=== PATIENT | female | born 1960 | race American Indian/Alaskan Native ===

== ENCOUNTER 2020-08-28 00:29 | Observation (INO) | payer OTHER, SELFPAY ==
--- NOTE | 2020-08-28 00:55 | Event Note ---
ED Screening Note Date of service: 08/28/20 Time: 00:55 ED Screening Note: c/o CP x today no SOB denies abnormal heart hx This initial assessment/diagnostic orders/clinical plan/treatment(s) is/are subject to change based on patients health status, clinical progression and re- assessment by fellow clinical providers in the ED. Further treatment and workup at subsequent clinical providers discretion. Patient/guardian urged not to elope from the ED as their condition may be serious if not clinically assessed and managed. Initial orders include: ekg CXR labs
--- NOTE | 2020-08-28 01:19 | XRay Report ---
CHEST 2 VIEWS INDICATION: chest pain. COMPARISON: None. FINDINGS: Support devices: None. Heart: Within normal limits. Lungs/Pleura: No acute air space or interstitial disease. No significant pleural effusion. IMPRESSION: No acute findings. Signer Name: Azael Jain MD Signed: 08/28/2020 1:15 AM Workstation Name: [id number]
[2020-08-28 01:59] LABS: Basophils % (Auto) 0.9 % (0.0-1.8); Eosinophils # (Auto) 0.2 K/mm3 (0.0-0.4); Eosinophils % (Auto) 3.6 % (0.0-4.3); Hematocrit 38.7 % (30.3-42.9); Hemoglobin 12.6 gm/dl (10.1-14.3); Lymphocytes # (Auto) 1.5 K/mm3 (1.2-5.4); Lymphocytes % (Auto) 26.5 % (13.4-35.0); Mean Corpuscular HGB Conc 33 % (30-34); Mean Corpuscular Volume 84 fl (79-97); Monocytes # (Auto) 0.4 K/mm3 (0.0-0.8); Monocytes % (Auto) 7.2 % (0.0-7.3); Platelet Count 232 K/mm3 (140-440); Red Blood Count 4.63 M/mm3 (3.65-5.03); Red Cell Distribution Width 13.9 % (13.2-15.2)
[2020-08-28 02:03] LABS: Alanine Aminotransferase 9 units/L (7-56); Albumin 4.5 g/dL (3.9-5); BUN/Creatinine Ratio 18; Blood Urea Nitrogen 14 mg/dL (7-17); Calcium 9.5 mg/dL (8.4-10.2); Hemolysis Index 2
[2020-08-28] MEDS ORDERED: ASPIRIN 325 MG TAB PO ONE (03:11)
[2020-08-28] MEDS ORDERED: cloNIDine 0.1 MG TAB PO ONE (03:11)
[2020-08-28] MEDS ORDERED: ONDANSETRON 4 MG/2 ML INJ IV ONE (03:11)
[2020-08-28] MEDS ORDERED: fentaNYL 100 MCG/2 ML INJ IV ONE (03:11)
[2020-08-28] MEDS ORDERED: NITROGLYCERIN 2% OINT 1 GM TP ONE (03:11)
--- NOTE | 2020-08-28 03:17 | Emergency Department Report ---
HPI - General Chief Complaint: Chest Pain Time Seen by Provider: 08/28/20 00:54 - HPI HPI: Room 21 The patient is a 59-year-old female present with a chief complaint of chest pain. Patient states 3 days ago she had an episode of intermittent chest pres sure but then it resolved. Patient states that the substernal chest pressure returned today and has been intermittent in nature. Patient denies nausea/vomiting, shortness of breath or diaphoresis. Patient denies history of fever. Patient currently gives her chest pressure score of 5/10. Patient states she is never had a stress test or cardiac catheterization ED Past Medical Hx - Past Medical History Additional medical history: fibroids - Surgical History Additional Surgical History: x3 - Family History Family history: no significant - Social History Smoking Status: Never Smoker Substance Use Type: None (Denies illicit drug use) ED Review of Systems ROS: Stated complaint: CHEST PAIN Other details as noted in HPI Constitutional: denies: diaphoresis Eyes: denies: eye pain ENT: denies: throat pain Respiratory: denies: shortness of breath Cardiovascular: chest pain Endocrine: no symptoms reported Gastrointestinal: denies: nausea, vomiting Genitourinary: denies: dysuria Musculoskeletal: back pain Neurological: denies: headache Physical Exam - Physical Exam Vital Signs: Vital Signs 08/28/20 00:51 Temperature 98.3 F Pulse Rate 100 H Respiratory 18 Rate Blood Pressure 185/112 O2 Sat by Pulse 98 Oximetry Physical Exam: GENERAL: The patient is well-developed well-nourished female lying on stretcher not appearing to be in acute distress. [] HEENT: Normocephalic. Atraumatic. Extraocular motions are intact. Patient has moist mucous membranes. NECK: Supple. Trachea midline CHEST/LUNGS: Clear to auscultation. There is no respiratory distress noted. HEART/CARDIOVASCULAR: Regular. There is no tachycardia. There is no gallop rub or murmur. 2+ radial pulses bilaterally ABDOMEN: Abdomen is soft, nontender. Patient has normal bowel sounds. There is no abdominal distention. SKIN: There is no rash. There is no edema. There is no diaphoresis. NEURO: The patient is awake, alert, and oriented. The patient is cooperative. The patient has no focal neurologic deficits. The patient has normal speech MUSCULOSKELETAL: There is no evidence of acute injury. ED Course Vital Signs 08/28/20 00:51 Temperature 98.3 F Pulse Rate 100 H Respiratory 18 Rate Blood Pressure 185/112 O2 Sat by Pulse 98 Oximetry ED Medical Decision Making - Lab Data Result diagrams: 08/28/20 00:56 08/28/20 00:56 - EKG Data -: EKG Interpreted by Me EKG shows normal: sinus rhythm Rate: normal - EKG Data When compared to previous EKG there are: previous EKG unavailable Interpretation: other (ST depressions inferolaterally) - Radiology Data Radiology results: report reviewed (Chest x-ray), image reviewed (Chest x-ray) interpreted by me: Chest x-ray-no focal infiltrates, no pneumothorax. No foreign body seen [facility] [address] [place] [address] XRay Report Signed Patient: WENDY WEST MR#: [id number] 22 : 1960 Acct:[id number] Age/Sex: 59 / F ADM Date: 08/28/20 Loc: ED Attending Dr: Ordering Physician: ZAHRA VALENZUELA Date of Service: 08/28/20 Procedure(s): XR chest routine 2V Accession Number(s): [id number] cc: ZAHRA VALENZUELA Fluoro Time In Minutes: CHEST 2 VIEWS INDICATION: chest pain. COMPARISON: None. FINDINGS: Support devices: None. Heart: Within normal limits. Lungs/Pleura: No acute air space or interstitial disease. No significant pleural effusion. IMPRESSION: No acute findings. Signer Name: Azael Jain MD Signed: 08/28/2020 1:15 AM Workstation Name: [id number] Transcribed By: ES Dictated By: Azael Jain MD Electronically Authenticated By: Azael Jain MD Signed Date/Time: 08/28/20114 DD/ 3 TD/TT: Print Cancel - Differential Diagnosis ACS, pericarditis, hypertensive urgency Critical care attestation.: If time is entered above; I have spent that time in minutes in the direct care of this critically ill patient, excluding procedure time. ED Disposition Clinical Impression: Chest pain, Uncontrolled hypertension, ST segment depression Disposition: OP ADMIT IP TO THIS HOSP Is pt being admited?: Yes Does the pt Need Aspirin: Yes Condition: Fair Instructions: Nonspecific Chest Pain, Adult, Hypertension (ED) Referrals: PRIMARY CARE,MD [Primary Care Provider] - 3-5 Days Time of Disposition: 03:18 (Hospitalist paged (Dr Baltazar)) Heart Score - HEART Score History: Moderately suspicious EKG: Significant ST-depression Age: 45-65 Risk factors: 1-2 risk factors Troponin: < normal limit HEART Score: 5 - EKG Read Time Time EKG Completed: 00:41 EKG Read Time: 00:46
[2020-08-28] MEDS ORDERED: MAGNESIUM HYDROXIDE (MOM) ORAL LIQD UDC PO PRN (03:57)
[2020-08-28] MEDS ORDERED: traMADol 50 MG TAB PO PRN (03:57)
[2020-08-28] MEDS ORDERED: ONDANSETRON 4 MG/2 ML INJ IV PRN (03:57)
[2020-08-28] MEDS ORDERED: ACETAMINOPHEN 325 MG TAB PO PRN (03:57)
[2020-08-28] MEDS ORDERED: MORPHINE 4 MG/1 ML INJ IV PRN (03:57)
[2020-08-28] MEDS ORDERED: NITROGLYCERIN 0.4 MG TAB SUBL SL PRN (03:57)
--- NOTE | 2020-08-28 04:19 | History and Physical Report ---
History of Present Illness Date of examination: 08/28/20 Date of admission: 08/28/2020 Chief complaint: Chest Pain History of present illness: 59-year-old -[place] female with no significant past medical history presenting today in the emergency room with 3-day history of chest pain. Chest pain has been intermittent over the past 3 days. It is substernal and radiating towards the back. Chest pain felt like pressure, no no relieving or exacerbating factor. She denies any fever or chills, no headache or dizziness, no nausea or vomiting, no shortness of breath and no diaphoresis. Patient denies any recent travel and no sick contacts. Denies any contact with anyone with COVID-19. Upon arrival in the emergency room blood pressure was quite elevated with systolic in the 180s and diastolic in the low 100s. Work-up in the emergency room reveals normal sinus rhythm on EKG with ST depressions in the inferolateral leads. Patient is being admitted for chest pain evaluation and uncontrolled hypertension. Past History Past Surgical History: , Other (Fibroids) Family history: hypertension (In father), other (Heart disease in Father.) Medications and Allergies Allergies Allergy/AdvReac Type Severity Reaction Status Date / Time No Known Allergies Allergy Verified 08/28/20 04:11 Active Meds: Active Medications Acetaminophen (Acetaminophen 325 Mg Tab) 650 mg PO Q4H PRN PRN Reason: Pain MILD(1-3)/Fever >100.5/PINEDA Aspirin (Aspirin Ec 325 Mg Tab) 325 mg PO QDAY [facility] Heparin Sodium (Porcine) (Heparin 5,000 Unit/1 Ml Vial) 5,000 unit SUB-Q Q8HR [facility] Magnesium Hydroxide (Magnesium Hydroxide (Mom) Oral Liqd Udc) 30 ml PO Q4H PRN PRN Reason: Constipation Morphine Sulfate (Morphine 4 Mg/1 Ml Inj) 2 mg IV Q5MIN PRN PRN Reason: Chest Pain Nitroglycerin (Nitroglycerin 0.4 Mg Tab Subl) 0.4 mg SL Q5M PRN PRN Reason: Chest Pain Ondansetron HCl (Ondansetron 4 Mg/2 Ml Inj) 4 mg IV Q8H PRN PRN Reason: Nausea And Vomiting Sodium Chloride (Sodium Chloride 0.9% 10 Ml Flush Syringe) 10 ml IV BID OCY Sodium Chloride (Sodium Chloride 0.9% 10 Ml Flush Syringe) 10 ml IV PRN PRN PRN Reason: LINE FLUSH Tramadol HCl (Tramadol 50 Mg Tab) 50 mg PO Q6H PRN PRN Reason: Pain, Moderate (4-6) Review of Systems Constitutional: no fever, no chills Ears, nose, mouth and throat: no nasal congestion, no sore throat Cardiovascular: chest pain, no palpitations Respiratory: no cough, no shortness of breath Gastrointestinal: no nausea, no vomiting, no diarrhea Genitourinary Female: no pelvic pain, no flank pain, no dysuria, no hematuria Musculoskeletal: no neck pain, no low back pain Integumentary: no rash, no pruritis Neurological: no headaches, no confusion Psychiatric: no anxiety, no depression Endocrine: no polyphagia, no polydipsia, no polyuria, no nocturia Exam - Constitutional Vitals: Temp Pulse Resp BP Pulse Ox 98.3 F 100 H 18 185/112 98 08/28/20 00:51 08/28/20 00:51 08/28/20 00:51 08/28/20 00:51 08/28/20 00:51 General appearance: Present: no acute distress, well-nourished - EENT Eyes: Present: PERRL, EOM intact. Absent: scleral icterus ENT: hearing intact, clear oral mucosa, dentition normal - Neck Neck: Present: supple, normal ROM - Respiratory Respiratory effort: normal Respiratory: bilateral: CTA - Cardiovascular Rhythm: regular Heart Sounds: Present: S1 & S2. Absent: gallop, systolic murmur, diastolic murmur, rub, click - Extremities Extremities: no ischemia, pulses intact, pulses symmetrical, No edema, normal temperature, normal color, Full ROM Peripheral Pulses: within normal limits - Abdominal General gastrointestinal: Present: soft, non-tender, non-distended, normal bowel sounds. Absent: mass - Integumentary Integumentary: Present: clear, warm, dry, normal turgor. Absent: rash - Musculoskeletal Musculoskeletal: strength equal bilaterally - Psychiatric Psychiatric: appropriate mood/affect, intact judgment & insight, memory intact, cooperative - Neurologic Neurologic: CNII-XII intact, no focal deficits, moves all extremities HEART Score - HEART Score History: Moderately suspicious EKG: Significant ST-depression Age: 45-65 Risk factors: 1-2 risk factors Troponin: Troponin T < 0.010 ng/mL (0.00-0.029) 08/28/20 00:56 Troponin: < normal limit HEART Score: 5 Results - Labs CBC & Chem 7: 08/28/20 00:56 08/28/20 00:56 Labs: Abnormal lab results 08/28/20 Range/Units 00:56 MCH 27 L (28-32) pg Assessment and Plan - Patient Problems (1) Chest pain Current Visit: Yes Status: Acute Plan to address problem: Patient admitted and placed on telemetry. We will check serial cardiac enzymes. Will monitor EKG. Patient had ST depressions in the inferior laterally. Patient will be placed on aspirin, sublingual nitroglycerin and IV morphine as needed for chest pain. We will schedule patient for stress test and echocardiogram. Consult will be placed to cardiology for evaluation. (2) Uncontrolled hypertension Current Visit: Yes Status: Acute Plan to address problem: Patient has undiagnosed hypertension. She has had some clonidine in the emergency room. Will monitor vital signs c losely. Will consider placing on routine home medications prior to discharge. (3) DVT prophylaxis Current Visit: Yes Status: Acute Plan to address problem: Patient placed on subcutaneous heparin. (4) Full code status Current Visit: Yes Status: Acute Plan to address problem: Full Code
[2020-08-28] MEDS ORDERED: hydrALAZINE 20 MG/1 ML INJ IV PRN (04:47)
[2020-08-28 05:01] LABS: Basophils % (Auto) 0.7 % (0.0-1.8); Eosinophils # (Auto) 0.1 K/mm3 (0.0-0.4); Eosinophils % (Auto) 1.8 % (0.0-4.3); Hematocrit 38.8 % (30.3-42.9); Hemoglobin 12.6 gm/dl (10.1-14.3); Lymphocytes # (Auto) 1.5 K/mm3 (1.2-5.4); Lymphocytes % (Auto) 22.5 % (13.4-35.0); Mean Corpuscular HGB Conc 33 % (30-34); Mean Corpuscular Volume 84 fl (79-97); Monocytes # (Auto) 0.4 K/mm3 (0.0-0.8); Monocytes % (Auto) 6.5 % (0.0-7.3); Platelet Count 207 K/mm3 (140-440); Red Blood Count 4.64 M/mm3 (3.65-5.03); Red Cell Distribution Width 14.1 % (13.2-15.2)
[2020-08-28 05:10] LABS: Blood Urea Nitrogen 15 mg/dL (7-17); Calcium 9.1 mg/dL (8.4-10.2); Chol/HDL Ratio 3.17 %; HDL Cholesterol 63 mg/dL (40-59); Hemolysis Index 3; LDL Cholesterol,Direct 131 mg/dL (50-130)
[2020-08-28 05:18] LABS: BUN/Creatinine Ratio 21
[2020-08-28] MEDS: HEPARIN 5,000 UNIT/1 ML VIAL SUB-Q SCH ×4 (06:27→21:43)
[2020-08-28] MEDS ORDERED: REGADENOSON 0.4 MG/5 ML INJ IV ONE (08:33)
[2020-08-28] MEDS: ACETAMINOPHEN 325 MG TAB PO PRN (12:45)
--- NOTE | 2020-08-28 14:22 | Event Note ---
Date: 08/28/20 Patient seen and examined, 59-year-old female who comes in for chest pain rule out. Echocardiogram and stress test have been completed. Patient's blood pressure was elevated with systolics in the 180s, Resolved after clonidine. Patient states that she does not take any blood pressure medications. Patient has very minimal chest pain at this time. We will continue to monitor, await recommendations from cardiology and make sure blood pressure is controlled.
--- NOTE | 2020-08-28 16:57 | Consultation ---
History of Present Illness Consult date: 08/28/20 Requesting physician: HOLLY GLOVER Consult reason: chest pain History of present illness: This patient is a 59-year-old female with no significant past medical history. Patient is previously unknown to our practice. Patient presents to [facility] ER with chief complaint of chest pain and hypertension x3 days. Chest pain is described as substernal and radiating towards the back, feels like pressure, not worse with inspiration, no palliative or provoking factors. Initial blood pressure is noted to be 180/100. Review of initial twelve-lead by ER staff is diagnosed as normal sinus rhythm with ST depression in inferior lateral leads. Patient denies any weakness, syncope, shortness of breath, fever, chills, headache, dizziness, N/V/D, recent illness or known exposures. At time of interview by cardiology patient is currently chest pain- free and feels much better patient states she is ready to go home. Past History Past Medical History: other (Per HPI) Past Surgical History: , Other (Fibroids) Family history: hypertension (In father), other (Heart disease in Father.) Medications and Allergies Allergies Allergy/AdvReac Type Severity Reaction Status Date / Time No Known Allergies Allergy Verified 08/28/20 04:11 Home Medications Medication Instructions Recorded Confirmed Last Taken Type No Known Home Medications [No 08/28/20 08/28/20 Unknown History Reported Home Medications] Active Meds: Active Medications Acetaminophen (Acetaminophen 325 Mg Tab) 650 mg PO Q4H PRN PRN Reason: Pain MILD(1-3)/Fever >100.5/PINEDA Last Admin: 08/28/20 12:45 Dose: 650 mg Documented by: Aspirin (Aspirin Ec 325 Mg Tab) 325 mg PO QDAY [facility] Heparin Sodium (Porcine) (Heparin 5,000 Unit/1 Ml Vial) 5,000 unit SUB-Q Q8HR [facility] Last Admin: 08/28/20 15:10 Dose: 5,000 unit Documented by: Hydralazine HCl (Hydralazine 20 Mg/1 Ml Inj) 10 mg IV Q4HR PRN PRN Reason: Blood Pressure Magnesium Hydroxide (Magnesium Hydroxide (Mom) Oral Liqd Udc) 30 ml PO Q4H PRN PRN Reason: Constipation Morphine Sulfate (Morphine 4 Mg/1 Ml Inj) 2 mg IV Q5MIN PRN PRN Reason: Chest Pain Nitroglycerin (Nitroglycerin 0.4 Mg Tab Subl) 0.4 mg SL Q5M PRN PRN Reason: Chest Pain Last Admin: 08/28/20 12:44 Dose: 0.4 mg Documented by: Ondansetron HCl (Ondansetron 4 Mg/2 Ml Inj) 4 mg IV Q8H PRN PRN Reason: Nausea And Vomiting Sodium Chloride (Sodium Chloride 0.9% 10 Ml Flush Syringe) 10 ml IV BID COY Last Admin: 08/28/20 12:45 Dose: 10 ml Documented by: Sodium Chloride (Sodium Chloride 0.9% 10 Ml Flush Syringe) 10 ml IV PRN PRN PRN Reason: LINE FLUSH Tramadol HCl (Tramadol 50 Mg Tab) 50 mg PO Q6H PRN PRN Reason: Pain, Moderate (4-6) Review of Systems Constitutional: no weight gain, no fever, no chills, no sweats Ears, nose, mouth and throat: no ear pain, no ear discharge, no nose pain, no nasal congestion, no nasal discharge Cardiovascular: chest pain, high blood pressure, no orthopnea, no palpitations, no rapid/irregular heart beat, no edema, no syncope Respiratory: no cough, no hemoptysis, no shortness of breath, no dyspnea on exertion Gastrointestinal: no abdominal pain, no nausea, no vomiting, no diarrhea Genitourinary Female: no flank pain Musculoskeletal: no neck stiffness, no neck pain, no shooting arm pain, no arm numbness/tingling, no low back pain, no shooting leg pain Integumentary: no rash, no pruritis, no redness, no sores, no wounds Neurological: no head injury, no paralysis, no weakness, no parathesias, no numbness, no tingling Psychiatric: no anxiety Endocrine: no cold intolerance, no heat intolerance Hematologic/Lymphatic: no easy bruising, no easy bleeding Allergic/Immunologic: no urticaria Physical Examination Last Vital Signs Temp 98.6 F 08/28/20 11:24 Pulse 78 08/28/20 11:24 Resp 18 08/28/20 11:24 BP 136/79 08/28/20 11:24 Pulse Ox 96 08/28/20 11:24 Results 08/28/20 04:16 08/28/20 04:16 Cardiac Enzymes 08/28/20 Range/Units 00:56 AST 17 (5-40) units/L Lipids 08/28/20 Range/Units 04:16 Triglycerides 74 (2-149) mg/dL Cholesterol 200 H (50-199) mg/dL HDL Cholesterol 63 H (40-59) mg/dL Cholesterol/HDL Ratio 3.17 % CBC 08/28/20 08/28/20 Range/Units 00:56 04:16 WBC 5.7 6.6 (4.5-11.0) K/mm3 RBC 4.63 4.64 (3.65-5.03) M/mm3 Hgb 12.6 12.6 (10.1-14.3) gm/dl Hct 38.7 38.8 (30.3-42.9) % Plt Count 232 207 (140-440) K/mm3 Lymph # (Auto) 1.5 1.5 (1.2-5.4) K/mm3 Crisp # (Auto) 0.4 0.4 (0.0-0.8) K/mm3 Eos # (Auto) 0.2 0.1 (0.0-0.4) K/mm3 Baso # (Auto) 0.0 0.0 (0.0-0.1) K/mm3 Comprehensive Metabolic Panel 08/28/20 08/28/20 Range/Units 00:56 04:16 Sodium 141 140 (137-145) mmol/L Potassium 3.9 4.1 (3.6-5.0) mmol/L Chloride 103.8 103.8 (98-107) mmol/L Carbon Dioxide 27 25 (22-30) mmol/L BUN 14 15 (7-17) mg/dL Creatinine 0.8 0.7 (0.6-1.2) mg/dL Glucose 94 92 (65-100) mg/dL Calcium 9.5 9.1 (8.4-10.2) mg/dL AST 17 (5-40) units/L ALT 9 (7-56) units/L Alkaline Phosphatase 97 (35-129) units/L Total Protein 7.1 (6.3-8.2) g/dL Albumin 4.5 (3.9-5) g/dL - Imaging and Cardiology Echo: report reviewed Assessment and Plan Telemetry reviewed: Sinus rhythm 62. No events. * Chest pain * Patient is currently chest pain-free. * Troponins are negative x2. AMI has been ruled out. * Lexiscan MPI stress test is negative for reversible ischemia. * Echocardiogram is pending read. * Hypertensive urgency * Patient is currently normotensive after receiving clonidine. No current antihypertensive regimen. * DVT prophylaxis * Aspirin 325 mg, heparin SQ Patient is currently normotensive and chest pain-free. Further Roberto pending echocardiogram results. Will follow Patient was seen in conjunction with Dr Ehsan Jurado who agrees with this assessment plan of care (1) Chest pain Current Visit: Yes Status: Acute Plan to address problem: (2) Uncontrolled hypertension Current Visit: Yes Status: Acute Plan to address problem: (3) DVT prophylaxis Current Visit: Yes Status: Acute Plan to address problem:
--- NOTE | 2020-08-28 23:07 | Treadmill Report ---
DATE OF SERVICE: 08/28/2020 REFERRING PHYSICIAN: Hospitalist service. PROTOCOL: The patient was tested in the postoperative state given 10 mCi of technetium at rest. The patient had rest imaging. The patient had a Lexiscan stress test per standard protocol. At peak stress, patient underwent 26 mCi of Technetium 99-m. Shortly thereafter, the patient underwent stress imaging. Raw imaging was monitored for a diagnosis of motion artifact. SPECT images were examined carefully. Horizontal long axis, vertical long axis, short axis views. There is normal homogenous uptake of radioisotope in all segments. No evidence of significant fixed or reversible perfusion defect suggestive of prior infarction or ischemia. Gated wall motion reveals normal systolic thickening, calculated ejection fraction of 73%. No TID. CONCLUSIONS: 1. Normal myocardial perfusion scan without evidence of active ischemia or prior infarction. 2. Normal left ventricular systolic performance with a calculated ejection fraction of 73% without evidence of transient ischemic dilatation or stress induced segmental wall motion abnormalities. TID: [id number] RECEIPT: [id number] VIRGILIO/UBALDO
[2020-08-29] MEDS: ACETAMINOPHEN 325 MG TAB PO PRN ×2 (05:31→09:50)
[2020-08-29] MEDS: HEPARIN 5,000 UNIT/1 ML VIAL SUB-Q SCH (05:32)
[2020-08-29 06:07] LABS: Basophils % (Auto) 0.8 % (0.0-1.8); Eosinophils # (Auto) 0.2 K/mm3 (0.0-0.4); Eosinophils % (Auto) 3.8 % (0.0-4.3); Hematocrit 36.1 % (30.3-42.9); Hemoglobin 11.7 gm/dl (10.1-14.3); Lymphocytes # (Auto) 1.7 K/mm3 (1.2-5.4); Lymphocytes % (Auto) 35.1 % (13.4-35.0); Mean Corpuscular HGB Conc 32 % (30-34); Mean Corpuscular Volume 83 fl (79-97); Monocytes # (Auto) 0.4 K/mm3 (0.0-0.8); Platelet Count 206 K/mm3 (140-440); Red Blood Count 4.36 M/mm3 (3.65-5.03); Red Cell Distribution Width 13.9 % (13.2-15.2)
[2020-08-29 06:14] LABS: INR 1.07 (0.87-1.13)
[2020-08-29 06:24] LABS: Blood Urea Nitrogen 20 mg/dL (7-17); Calcium 8.6 mg/dL (8.4-10.2); Hemolysis Index 35
[2020-08-29 06:25] LABS: BUN/Creatinine Ratio 29
--- NOTE | 2020-08-29 08:13 | Treadmill Report ---
[facility] Test Date: 2020-08-28 Test Time: 08:55:06 Pat Name: WENDY WEST Department: Room: A467 1 Gender: F Projector Booth Operator: Tennille Worrell : 1960 Requested By: HOLLY GLOVER Order Number: [id number] Reading MD: Ari Jurado Interpretive Statements Electronically Signed On 08-29-2020 8:13:22 EDT by Ari Jurado
[2020-08-29 08:19] VITALS: BP 120/75
[2020-08-29] MEDS ORDERED: ASPIRIN EC 325 MG TAB PO SCH (10:00)
[2020-08-29] MEDS ORDERED: BUTALB/ACETAMINOPHEN/CAFFEINE TAB PO PRN (10:19)
--- NOTE | 2020-08-29 11:30 | Progress Note ---
Assessment and Plan Telemetry reviewed: Sinus rhythm 69. No events * Chest pain * Chest pain has resolved. Patient is currently chest pain-free with no episodes of chest pain or shortness of breath overnight. * Troponins are negative x2. AMI has been ruled out. * Echocardiogram reviewed (08/28/2020): LVEF is 55 to 60%. LV SF is normal. Mild diastolic dysfunction is present (impaired relaxation pattern). RV SF is normal. RVSP is 25 mmHg. There is no valvular abnormalities. * Lexiscan MPI stress test reviewed (08/28/2020): negative for reversible is chemia. * Hypertensive urgency * Patient is currently normotensive after receiving clonidine. No current antihypertensive regimen. * DVT prophylaxis * Aspirin 325 mg, heparin SQ Patient is currently normotensive and chest pain-free. Patient may discharge from cardiac standpoint. Patient should follow-up with Dr Nima Ordonez in our office within 1 to 2 weeks of discharge (pending scheduling). #[id number] Patient was seen in conjunction with Dr Ehsan Jurado who agrees with this assessment plan of care (1) Chest pain Current Visit: Yes Status: Acute Plan to address problem: (2) Uncontrolled hypertension Current Visit: Yes Status: Acute Plan to address problem: (3) DVT prophylaxis Current Visit: Yes Status: Acute Plan to address problem: Subjective Date of service: 08/29/20 Principal diagnosis: Chest Pain Interval history: Patient resting comfortably in bed. No shortness of breath or chest pain overnight Telemetry reviewed: Sinus rhythm 69. No events Objective Last Vital Signs Temp 98.0 F 08/29/20 07:53 Pulse 70 08/29/20 08:30 Resp 18 08/29/20 07:53 BP 120/75 08/29/20 07:53 Pulse Ox 99 08/29/20 07:53 - Physical Examination General: No Apparent Distress HEENT: Positive: PERRL, Normocephaly, Mucus Membranes Moist Neck: Positive: neck supple, trachea midline Cardiac: Positive: Reg Rate and Rhythm, S1/S2 Lungs: Positive: Normal Exam, Normal Breath Sounds Neuro: Positive: Grossly Intact Abdomen: Positive: Unremarkable, Soft Skin: Negative: Rash, Wound Extremities: Present: upper extr. pulses, lower extr. pulses. Absent: edema - Labs and Meds Coagulation 08/29/20 Range/Units 04:39 PT 13.7 (12.2-14.9) Sec. INR 1.07 (0.87-1.13) CBC 08/29/20 Range/Units 04:39 WBC 5.0 (4.5-11.0) K/mm3 RBC 4.36 (3.65-5.03) M/mm3 Hgb 11.7 (10.1-14.3) gm/dl Hct 36.1 (30.3-42.9) % Plt Count 206 (140-440) K/mm3 Lymph # (Auto) 1.7 (1.2-5.4) K/mm3 [place] # (Auto) 0.4 (0.0-0.8) K/mm3 Eos # (Auto) 0.2 (0.0-0.4) K/mm3 Baso # (Auto) 0.0 (0.0-0.1) K/mm3 Comprehensive Metabolic Panel 08/29/20 Range/Units 04:39 Sodium 140 (137-145) mmol/L Potassium 4.1 (3.6-5.0) mmol/L Chloride 105.7 (98-107) mmol/L Carbon Dioxide 25 (22-30) mmol/L BUN 20 H (7-17) mg/dL Creatinine 0.7 (0.6-1.2) mg/dL Glucose 85 (65-100) mg/dL Calcium 8.6 (8.4-10.2) mg/dL - Imaging and Cardiology EKG: report reviewed, image reviewed Nuclear stress test: report reviewed (MPI stress test is negative for reversible ischemia) Echo: report reviewed - Telemetry EKG Rhythm: Sinus Rhythm - EKG Sinus rhythms and dysrhythmias: sinus rhythm
--- NOTE | 2020-08-29 13:39 | Discharge Summary ---
Providers - Providers Date of Admission: 08/28/20 03:36 Date of discharge: 08/29/20 Attending physician: NORMA MARROQUIN 08/28/20 Consult to Cardiac Rehabilitation [CONS] Routine Reason For Exam: Phase I 08/28/20 03:57 Consult to Cardiology [CONS] Routine Consulting Provider: KEIRY CHONG Reason For Exam: chest pain Consult to Physician [CONS] Routine Comment: Consulting Provider: KEIRY CHONG Physician Instructions: Reason For Exam: chest pain Primary care physician: L[employer] F[employer]WORKER Hospitalization Condition: Fair Pertinent studies: Echocardiogram reviewed (08/28/2020): LVEF is 55 to 60%. LV SF is normal. Mild diastolic dysfunction is present (impaired relaxation pattern). RV SF is normal. RVSP is 25 mmHg. There is no valvular abnormalities. Lexiscan MPI stress test reviewed (08/28/2020): negative for reversible ischemia. Hospital course: This patient is a 59-year-old female with no significant past medical history presents to [facility] ER with chief complaint of chest pain and hypertension x3 days. Patient was evaluated in the ER, initial cardiac enzyme and EKG was unremarkable, chest x-ray showed no infiltrates. Patient was admitted and underwent myocardial stress test which was normal, 2D echo showed preserved EF. Initial blood pressure is noted to be 180/100 but improved after giving p.o. clonidine and remained stable without any further antihypertensives. Cardiology was consulted and recommended no further additional work-up. Patient was then discharged home in stable condition with outpatient follow-up. Disposition: TO HOME OR SELFCARE Final Discharge Diagnosis (Prints w/discharge instructions): (1) atypical chest pain likely from GERD. Current Visit: Yes Status: Acute. (2) Uncontrolled hypertension. Current Visit: Yes Status: Acute. (3) obesity. Current Visit: Yes Status: Chronic Core Measure Documentation - Palliative Care Palliative Care/ Comfort Measures: Not Applicable - Core Measures Any of the following diagnoses?: none Exam - Physical Exam Narrative exam: GENERAL: well-developed and obese female lying on bed appeared to be in no discomfort. HEENT: Normocephalic. Atraumatic. No conjunctival congestion or icterus. Patient has moist mucous membranes. NECK: Supple. Trachea midline. CHEST/LUNGS: Clear to auscultated bilaterally, breathing nonlabored. No wheezes crackles or rhonchi. HEART/CARDIOVASCULAR: Regular in rate and rhythm. S1 and S2 positive. ABDOMEN: Abdomen is soft, nontender. Patient has normal bowel sounds. SKIN: There is no rash. Warm and dry. NEURO: No focal motor deficit. Follows command. MUSCULOSKELETAL: No joint effusion or tenderness. EXTRIMITY: No edema, no cyanosis or clubbing. PSYCH: Cooperative. - Constitutional Vitals: Temp Pulse Resp BP Pulse Ox 98.0 F 70 18 120/75 99 08/29/20 07:53 08/29/20 08:30 08/29/20 07:53 08/29/20 07:53 08/29/20 07:53 Plan Activity: advance as tolerated Weight Bearing Status: Weight Bear as Tolerated Diet: low fat, low salt Follow up with: PRIMARY CAREMD [Primary Care Provider] - 3-5 Days TEE CALLEJAS MD [Staff Physician] - 7 Days Prescriptions: Butalb/Acetamin/Caff 50-325-40 [Fioricet 50-325-40] 1 tab PO Q4H PRN #10 tablet PRN Reason: Headache Aspirin EC [Halfprin EC] 81 mg PO QDAY #30 tablet.
--- NOTE | 2020-08-31 11:31 | Electrocardiograph Report ---
[facility] Test Date: 2020-08-28 Test Time: 00:41:18 Pat Name: WENDY WEST Department: Room: A467 1 Gender: F Ic Designer Custom: SHERRY : 1960 Requested By: ZAHRA VALENZUELA Order Number: [id number] Reading MD: Modesto Flores Measurements Intervals [place] Rate: 98 P: 23 GA: 130 QRS: 39 QRSD: 72 T: 45 QT: 329 QTc: 421 Interpretive Statements Sinus rhythm Borderline inferolateral ST depression No previous ECG available for comparison Electronically Signed On 08-31-2020 11:30:47 EDT by Modesto Flores
--- NOTE | 2020-08-31 11:45 | Electrocardiograph Report ---
[facility] Test Date: 2020-08-29 Test Time: 06:40:00 Pat Name: WENDY WEST Department: Room: A467 1 Gender: F Clam Digger: MARGARETTE : 1960 Requested By: ALESSANDRO SALGADO Order Number: [id number] Reading MD: Modesto Flores Measurements Intervals [place] Rate: 65 P: 50 CO: 146 QRS: 43 QRSD: 74 T: 31 QT: 372 QTc: 389 Interpretive Statements Sinus rhythm Compared to ECG 08/28/2020 00:41:18 No significant changes Electronically Signed On 08-31-2020 11:44:51 EDT by Modesto Flores
--- NOTE | 2020-08-31 11:47 | Electrocardiograph Report ---
[facility] Test Date: 2020-08-29 Test Time: 10:25:37 Pat Name: WENDY WEST Department: Room: A467 1 Gender: F Dean Of Instruction: MARGARETTE : 1960 Requested By: HOLLY GLOVER Order Number: [id number] Reading MD: Modesto Flores Measurements Intervals [place] Rate: 66 P: 46 [place]: 150 QRS: 36 QRSD: 74 T: 30 QT: 366 QTc: 383 Interpretive Statements Sinus rhythm Compared to ECG 08/29/2020 06:40:00 No significant changes Electronically Signed On 08-31-2020 11:47:25 EDT by Modesto Flores
== END 2020-08-29 15:20 | disposition home or self-care (01) ==
LOC: ED 00:29 → 4A 03:36
PROVIDERS: ADMIT Internal Medicine Geriatric Medicine; ATTEND Internal Medicine
DX: R07.89 Other chest pain (principal); I10 Essential (primary) hypertension; D25.9 Leiomyoma of uterus, unspecified; K21.9 Gastro-esophageal reflux disease without esophagitis; E66.9 Obesity, unspecified; R94.31 Abnormal electrocardiogram [ECG] [EKG]; Z98.891 History of uterine scar from previous surgery; Z79.82 Long term (current) use of aspirin; Z68.34 Body mass index [BMI] 34.0-34.9, adult; Z79.899 Other long term (current) drug therapy; Z98.890 Other specified postprocedural states
CPT/HCPCS: 36415; 71046; 78452; 80048; 80053; 80061; 83036; 84484; 85025; 85610; 93005; 93017; 93306; 96372; 96374; 96375; 99285; A9502; G0378; J1644; J2270; J2405; J3010

== ENCOUNTER 2021-01-09 02:52 | Emergency (ER) | payer SELFPAY ==
[2021-01-09] MEDS ORDERED: ONDANSETRON 4 MG/2 ML INJ IV ONE (04:21)
[2021-01-09] MEDS ORDERED: SODIUM CHLORIDE 0.9% 1000 ML 1,000 ML IV ONE (04:21)
--- NOTE | 2021-01-09 04:21 | Event Note ---
ED Screening Note ED Screening Note: 60-year-old -[place]vian male female presents emergency department complaining of possible hypertension in conjunction with dizziness nausea presyncope fatigue of unknown etiology. She reports no known contact with coronavirus This initial assessment/diagnostic orders/clinical plan/treatment(s) is/are subject to change based on patients health status, clinical progression and re- assessment by fellow clinical providers in the ED. Further treatment and workup at subsequent clinical providers discretion. Patient/guardian urged not to elope from the ED as their condition may be serious if not clinically assessed and managed. Initial orders include: Plan doing a presyncope/cardiac work-up
--- NOTE | 2021-01-09 04:57 | XRay Report ---
XR chest routine 2V INDICATION / CLINICAL INFORMATION: Lightheadedness/Dizziness. COMPARISON: 08/28/2020 FINDINGS: SUPPORT DEVICES: None. HEART /PULMONARY VASCULATURE: No significant abnormality. LUNGS / PLEURA: No significant pulmonary or pleural abnormality. No pneumothorax. ADDITIONAL FINDINGS: No significant additional findings. IMPRESSION: 1. No acute findings. Signer Name: Tyrone Pablo MD Signed: 01/09/2021 4:52 AM Workstation Name: [id number]
[2021-01-09 05:24] LABS: Bilirubin,Urine NEG (Negative); Blood,Urine NEG (Negative); Color,Urine Yellow (Yellow); Mucus,Urine FEW /HPF; Protein,Urine <15 mg/dL mg/dL (Negative); Urobilinogen,Urine < 2.0 mg/dL (<2.0)
[2021-01-09 05:28] LABS: HCG Qualitative,Urine Negative (Negative)
[2021-01-09 05:47] LABS: Basophils % (Auto) 0.3 % (0.0-1.8); Eosinophils % (Auto) 0.3 % (0.0-4.3); Hematocrit 37.6 % (30.3-42.9); Hemoglobin 12.4 gm/dl (10.1-14.3); Lymphocytes % (Auto) 10.5 % (13.4-35.0); Mean Corpuscular HGB Conc 33 % (30-34); Mean Corpuscular Volume 82 fl (79-97); Monocytes # (Auto) 0.4 K/mm3 (0.0-0.8); Monocytes % (Auto) 4.3 % (0.0-7.3); Platelet Count 233 K/mm3 (140-440); Red Blood Count 4.61 M/mm3 (3.65-5.03); Red Cell Distribution Width 14.2 % (13.2-15.2)
[2021-01-09 05:49] LABS: Alanine Aminotransferase 10 units/L (7-56); Albumin 4.4 g/dL (3.9-5); BUN/Creatinine Ratio 19; Blood Urea Nitrogen 15 mg/dL (7-17); Calcium 10.1 mg/dL (8.4-10.2); Hemolysis Index 1
--- NOTE | 2021-01-09 06:43 | Emergency Department Report ---
ED Dizziness HPI - General Chief Complaint: Dizziness Stated Complaint: HYPERTENSIVE Time Seen by Provider: 01/09/21 06:07 Source: patient Mode of arrival: Ambulatory Limitations: No Limitations - History of Present Illness Initial Comments: 60-year-old female with a history of hypertension, presents to ED with complaint of dizziness. Patient states she felt a combination of off balance, lightheaded as if she was going to pass out, and as if the room was spinning. She reports she felt as if she was going to pass out more than anything else. Patient states she was watching videos on her cell phone. States she stood up to walk to her bedroom and felt lightheaded. Patient states this was around 12:30 AM. Patient states she had associated nausea. Patient states the dizziness was worse when she would stop and sit down. However, while up and moving around the dizziness is better. Patient denies any headache, chest pain, shortness of breath, fever, diarrhea. Patient states when she arrived to the ER she had an episode of vomiting. Patient states she now feels better and her dizziness has resolved. MD Complaint: dizziness -: This morning Timing: sudden onset, now resolved Description: "room spinning", lightheadedness, off-balance History of Same: No Severity: moderate Improves With: other (moving) Worsens With: other (sitting) Associated Symptoms: denies: chest pain, cough, diaphoresis, fever/chills, quyen rtness of breath, syncope, weakness - Related Data Previous Rx's Medication Instructions Recorded Last Taken Type Aspirin EC [Halfprin EC] 81 mg PO QDAY #30 tablet. 08/29/20 Unknown Rx Butalb/Acetamin/Caff 50-325-40 1 tab PO Q4H PRN #10 tablet 08/29/20 Unknown Rx [Fioricet 50-325-40] Meclizine [Antivert] 25 mg PO TID PRN #20 tablet 01/09/21 Unknown Rx Allergies Allergy/AdvReac Type Severity Reaction Status Date / Time No Known Allergies Allergy Verified 08/28/20 04:11 ED Review of Systems ROS: Stated complaint: HYPERTENSIVE Other details as noted in HPI Comment: All other systems reviewed and negative Constitutional: denies: fever Respiratory: denies: cough, shortness of breath Cardiovascular: denies: chest pain Gastrointestinal: nausea, vomiting. denies: abdominal pain, diarrhea Genitourinary: denies: dysuria, frequency Neurological: vertigo. denies: headache, weakness, numbness ED Past Medical Hx - Past Medical History Previous Medical History?: Yes Additional medical history: fibroids - Surgical History Past Surgical History?: Yes Additional Surgical History: x3 - Social History Smoking Status: Never Smoker - Medications Home Medications: Home Medications Medication Instructions Recorded Confirmed Last Taken Type Aspirin EC [Halfprin EC] 81 mg PO QDAY #30 tablet. 08/29/20 Unknown Rx Butalb/Acetamin/Caff 50-325-40 1 tab PO Q4H PRN #10 tablet 08/29/20 Unknown Rx [Fioricet 50-325-40] Meclizine [Antivert] 25 mg PO TID PRN #20 tablet 01/09/21 Unknown Rx ED Physical Exam - General Limitations: No Limitations General appearance: alert, in no apparent distress - Head Head exam: Present: atraumatic, normocephalic - Eye Eye exam: Present: normal appearance, PERRL, EOMI. Absent: nystagmus - ENT ENT exam: Present: mucous membranes moist - Neck Neck exam: Present: normal inspection, full ROM. Absent: tenderness - Respiratory Respiratory exam: Present: normal lung sounds bilaterally. Absent: respiratory distress - Cardiovascular Cardiovascular Exam: Present: regular rate, normal rhythm - GI/Abdominal GI/Abdominal exam: Present: soft. Absent: distended, tenderness - Extremities Exam Extremities exam: Present: normal inspection - Neurological Exam Neurological exam: Present: alert, oriented X3, CN II-XII intact, normal gait, other (Anger to nose and [id number] normal bilaterally). Absent: motor sensory deficit - Psychiatric Psychiatric exam: Present: normal affect, normal mood - Skin Skin exam: Present: warm, dry, intact, normal color ED Course Vital Signs 01/09/21 01/09/21 01/09/21 03:06 05:37 05:45 Temperature 97.7 F Pulse Rate 103 H 92 H 87 Respiratory 16 14 24 Rate Blood Pressure 155/96 139/90 O2 Sat by Pulse 97 98 Oximetry 01/09/21 01/09/21 01/09/21 06:01 06:15 06:31 Temperature Pulse Rate 75 80 83 Respiratory 19 17 20 Rate Blood Pressure 120/75 113/66 125/81 O2 Sat by Pulse 97 100 99 Oximetry 01/09/21 01/09/21 01/09/21 06:59 07:01 07:31 Temperature Pulse Rate Respiratory Rate Blood Pressure 120/75 120/75 120/75 O2 Sat by Pulse 100 99 99 Oximetry 01/09/21 01/09/21 01/09/21 08:01 08:15 08:45 Temperature Pulse Rate 73 67 70 Respiratory 16 16 16 Rate Blood Pressure 121/79 121/79 120/72 O2 Sat by Pulse 98 99 99 Oximetry 01/09/21 01/09/21 09:01 09:31 Temperature Pulse Rate 70 68 Respiratory 16 17 Rate Blood Pressure 117/75 109/64 O2 Sat by Pulse 99 99 Oximetry ED Medical Decision Making - Lab Data Result diagrams: 01/09/21 05:00 01/09/21 05:00 - EKG Data -: EKG Interpreted by Me EKG shows normal: sinus rhythm, axis, intervals, QRS complexes, ST-T waves Rate: normal - EKG Data Interpretation: no acute changes - Radiology Data Radiology results: report reviewed, image reviewed - Medical Decision Making 60-year-old female presents to ED with dizziness and concern for elevated blood pressure. Initial blood pressure 155/96, however BP improved without intervention. Neuro exam nonfocal. CT head normal. Patient able to ambulate without assistance with RN walking alongside her. Gait normal. Patient states she feels much better at rest and with ambulation. She feels comfortable with discharge at this time. Outpatient follow-up advised, return precautions given. - Differential Diagnosis Vertigo, dehydration, hypertensive dizziness Critical care attestation.: If time is entered above; I have spent that time in minutes in the direct care of this critically ill patient, excluding procedure time. ED Disposition Clinical Impression: Dizziness Disposition: 01 HOME / SELF CARE / HOMELESS Is pt being admited?: No Condition: Stable Instructions: Dizziness, [id number]-[id number] Prescriptions: Meclizine [Antivert] 25 mg PO TID PRN #20 tablet PRN Reason: Vertigo Referrals: PRIMARY MD ERROL [Primary Care Provider] - 3-5 Days [facility] [Provider Group] - 3-5 Days HAI BECKFORD MD [Referring] - 3-5 Days PATRICK TEJEDA MD [Staff Physician] - 3-5 Days Time of Disposition: 08:34
--- NOTE | 2021-01-09 07:21 | Cat Scan Report ---
CT HEAD WITHOUT CONTRAST INDICATION / CLINICAL INFORMATION: Pt complains of dizziness / Hx of Hypertension. TECHNIQUE: All CT scans at this location are performed using CT dose reduction for ALARA by means of automated exposure control. COMPARISON: None available. FINDINGS: BRAIN PARENCHYMA: No acute intracranial hemorrhage. No evidence of recent infarct. No mass effect or midline shift. White matter chronic small vessel ischemic changes. VENTRICULAR SYSTEM/EXTRA-AXIAL SPACES: Ventricles are normal for age. No extra-axial fluid collection . ORBITS: Normal as visualized. SKELETAL SYSTEM/SOFT TISSUES: Normal bones and soft tissues. PARANASAL SINUSES/MASTOID AIR CELLS: No significant abnormality. ADDITIONAL FINDINGS: None. IMPRESSION: 1. No acute intracranial abnormality. Signer Name: Tyrone Pablo MD Signed: 01/09/2021 7:16 AM Workstation Name: [id number]
[2021-01-09 09:40] VITALS: BP 109/64
--- NOTE | 2021-01-09 11:42 | Electrocardiograph Report ---
[facility] Test Date: 2021-01-09 Test Time: 07:01:27 Pat Name: WENDY WEST Department: Room: Gender: F Back Order Clerk: SHERRY : 1960 Requested By: KEYA CULLEN Order Number: [id number] Reading MD: Garfield Mg Measurements Intervals [place] Rate: 85 P: 1 [place]: 134 QRS: 7 QRSD: 76 T: -9 QT: 356 QTc: 423 Interpretive Statements Sinus rhythm Compared to ECG 08/29/2020 10:25:37 No significant changes Electronically Signed On 01-09-2021 11:42:09 EDT by Garfield Mg
== END 2021-01-09 10:15 | disposition home or self-care (01) ==
LOC: ED 02:52
DX: R42 Dizziness and giddiness (principal); Z98.890 Other specified postprocedural states; Z79.82 Long term (current) use of aspirin; Z79.899 Other long term (current) drug therapy
CPT/HCPCS: 36415; 70450; 71046; 80053; 81001; 81025; 84484; 85025; 87086; 93005; 96361; 96374; 99284; J2405; J7030